=== PATIENT | male | born 1990 | race African-American/Black ===

== ENCOUNTER 2019-08-17 18:56 | Emergency (ER) | payer SELFPAY ==
[2019-08-17 19:06] VITALS: BP 109/59; PULSE 58; TEMP 97.9; BMI 20.7
[2019-08-17] MEDS ORDERED: IBUPROFEN 600 MG TABLET (FP) PO ONE ×2 (19:37→19:40)
--- NOTE | 2019-08-17 19:53 | PDOC ---
Documentation entered by Helen Cartwright SCRIBE, acting as scribe for Cristela Camilo MD. Cristela Camilo MD: This documentation has been prepared by the scribeChay Lincy, SCRIBE, under my direction and personally reviewed by me in its entirety. I confirm that the documentation accurately reflects all work, treatment, procedures, and medical decision making performed by me. History of Present Illness - General Chief Complaint: Pain, Acute Stated Complaint: LEFT SHOULDER PAIN FROM 2011 History Source: Patient Exam Limitations: No Limitations - History of Present Illness Initial Comments: 08/17/19 19:56 The patient is a 29-year-old male with no reported past medical history who presents to the emergency department with left shoulder and neck pain. The patient presents with an intermittent flare-ups of sharp, tight pain to the left shoulder-neck area since 2011. The patient reports the pain is aggravated during the winter season and after playing basketball, denies any known factors that alleviate the pain. Denies taking any medication for the pain. The patient reports around 5-6:00 pm today he was outside in the windy weather campaigning when he had an onset of the pain, currently at the ER denies having that pain. Denies prior surgical history or trauma. Denies a history of broken bones. Denies new weakness or tingling. Allergies: NKDA Social history: current everyday smokers, No reported use of alcohol or recreational drugs. Surgical history: Denies surgical history. Past History - Past Medical History Allergies/Adverse Reactions: Allergies Allergy/AdvReac Type Severity Reaction Status Date / Time No Known Allergies Allergy Verified 08/17/19 18:57 Home Medications: Ambulatory Orders NK [No Known Home Medication] 08/17/19 COPD: No - Psycho Social/Smoking Cessation Hx Smoking History: Current every day smoker Have you smoked in the past 12 months: Yes Number of Cigarettes Smoked Daily: 20 Information on smoking cessation initiated: Yes Hx Alcohol Use: No Drug/Substance Use Hx: No Review of Systems - Review of Systems Able to Perform ROS?: Yes Comments:: 08/17/19 19:57 GENERAL/CONSTITUTIONAL: No fever or chills. No weakness. HEAD, EYES, EARS, NOSE AND THROAT: No change in vision. No ear pain or discharge. No sore throat. CARDIOVASCULAR: No chest pain or shortness of breath. RESPIRATORY: No cough, wheezing, or hemoptysis. GASTROINTESTINAL: No nausea, vomiting, diarrhea or constipation. GENITOURINARY: No dysuria, frequency, or change in urination. MUSCULOSKELETAL: +left shoulder-neck pain. No joint or other muscle swelling or pain. No neck or back pain. SKIN: No rash NEUROLOGIC: No headache, vertigo, loss of consciousness, or change in strength/ sensation. ENDOCRINE: No increased thirst. No abnormal weight change. HEMATOLOGIC/LYMPHATIC: No anemia, easy bleeding, or history of blood clots. ALLERGIC/IMMUNOLOGIC: No hives or skin allergy. *Physical Exam - Vital Signs Last Vital Signs Temp Pulse Resp BP Pulse Ox 97.9 F 58 L 20 109/59 L 100 08/17/19 18:57 08/17/19 18:57 08/17/19 18:57 08/17/19 18:57 08/17/19 18:57 - Physical Exam Comments: 08/17/19 19:48 awake alert lungs clear bilat heart rrr no mrg abd soft nt nd left shoulder from. left trapezial muscle focal point of tenderness. neck FROM. no midline spinal tenderness. n/v intact. ED Treatment Course - Medications Given in the ED: ED Medications Discontinued Medications Generic Name Dose Route Start Last Admin Trade Name Freq PRN Reason Stop Dose Admin Ibuprofen 600 mg 08/17/19 19:37 08/17/19 19:41 Motrin - PO 08/17/19 19:38 600 mg ONCE ONE Administration Medical Decision Making - Medical Decision Making 08/17/19 19:49 29 yo male with no pmhx no primary doctor here today for c/o left shoulder pain he has had for several years. pt describing sharp pain over his trapezius he has had for severl years. occassionally worse with exposure to cold weather and turning his head to the right. no new weakness or tingling. no h/o spinal or shoulder injury. no prior surgeries. no f/c. has had mild cough recently. no other complaints. was hurting earlier today he was standing on corner campaigning, and is very busy under lot of stress so decided to come get it checked out. no sob. no cp. no other complaints. plan motrin, will refer to orthopedics. likely trapezial spasm. Discharge - Discharge Information Problems reviewed: Yes Clinical Impression/Diagnosis: Muscle pain - Admission No - Follow up/Referral Referrals: Ced Rosa MD [Staff Physician] - Sancho Dodge MD [Staff Physician] - - Patient Discharge Instructions Patient Printed Discharge Instructions: DI for Muscle Spasm Additional Instructions: you should follow up with a primary doctor. if you do not have one you can follow up with sancho Gutierrez. see referral information . you should also see a orthopedist. you can call Dr Rosa. see referral information. you can ask to be seen at [facility] . You can take motrin 600 mg every 8 hrs as needed for pain. return for any problems or concerns. - Post Discharge Activity
== END 2019-08-17 20:00 | disposition home or self-care (01) ==
LOC: FER 18:56
DX: M79.10 Myalgia, unspecified site (principal); F17.210 Nicotine dependence, cigarettes, uncomplicated
CPT/HCPCS: 99282-25